=== PATIENT | female | born 1975 | race Caucasian/White ===

== ENCOUNTER 2018-06-16 19:52 | Emergency (ER) | payer MEDICAID ==
[~2018-06-16 19:52] MED LIST: DIPH-423 PO; NO HOME MEDS; ONDA4TAB6 PO; PANT20TA2 PO; PRED20TA PO
== END 2018-06-16 21:07 | disposition left against medical advice (07) ==
LOC: ER 19:53
DX: R10.9 Unspecified abdominal pain (principal); Z53.21 Procedure and treatment not carried out due to patient leaving prior to being seen by health care provider

== ENCOUNTER 2019-11-20 16:03 | Emergency (ER) | payer MEDICAID, OTHER ==
[~2019-11-20] VITALS: Ht 172.7 cm; Wt 70.5 kg
[2019-11-20 16:12] VITALS: BP 136/78
[2019-11-20] MEDS ORDERED: HYDROcodone/acetaminophen 5mg/325mg tablet PO ONE (17:05)
[2019-11-20] MEDS ORDERED: ondansetron 4mg rapidly disintigrating tab PO ONE (17:05)
[2019-11-20] MEDS ORDERED: HYDR-4383 PO (17:34)
[2019-11-20] MEDS ORDERED: ONDA4TAB6 PO (17:34)
== END 2019-11-20 17:53 | disposition home or self-care (01) ==
LOC: ER 16:03
DX: S20.219A Contusion of unspecified front wall of thorax, initial encounter (principal); F15.90 Other stimulant use, unspecified, uncomplicated; Z56.0 Unemployment, unspecified; Z90.49 Acquired absence of other specified parts of digestive tract; Z98.890 Other specified postprocedural states; Z79.899 Other long term (current) drug therapy; Y04.0XXA Assault by unarmed brawl or fight, initial encounter; Y93.89 Activity, other specified; Y92.89 Other specified places as the place of occurrence of the external cause; Y99.9 Unspecified external cause status
CPT/HCPCS: 71045; 99283

== ENCOUNTER 2023-04-12 13:32 | Inpatient (IN) | payer MEDICAID ==
[~2023-04-12] VITALS: Ht 172.7 cm; Wt 71.1 kg
[~2023-04-12 13:32] MED LIST changes: +HYDR-4383 PO
[2023-04-12 14:22] LABS: CLARITY,URINE SLIGHTLY CLOUDY (Clear); COLOR,URINE YELLOW (Yellow); GLUCOSE, URINE NEGATIVE (Neg); KETONES,URINE >=80 mg/dl (Neg); LEUKOCYTE ESTERASE ,URINE NEGATIVE (Neg); NITRITES, URINE NEGATIVE (Neg); OCCULT BLOOD,URINE TRACE-INTACT (Neg); PROTEIN,URINE NEGATIVE (Neg)
[2023-04-12 14:22] LABS: BASOPHILS % (AUTO) 0.4 % (0-1); EOSINOPHILS # (AUTO) 0.1 X10'3 (0-0.9); EOSINOPHILS % (AUTO) 1.1 % (0-6); HEMATOCRIT 43.9 % (35.0-45.0); HEMOGLOBIN 15.3 g/dl (12.0-16.0); LYMPHOCYTES # (AUTO) 1.6 X10'3 (1.1-4.8); LYMPHOCYTES % (AUTO) 18.8 % (21-51); MEAN CORPUSCULAR VOLUME 88.6 FL (78-98); MEAN PLATELET VOLUME 7.6 FL (7.4-10.4); MONOCYTES # (AUTO) 0.6 X10'3 (0-0.9); MONOCYTES % (AUTO) 7.7 % (2-12); PLATELET COUNT 315 X10'3 (140-440); RED BLOOD COUNT 4.96 X10'6 (4.20-5.60); RED CELL DISTRIBUTION WIDTH 12.9 % (11.5-14.5); WHITE BLOOD COUNT 8.3 X10'3 (4.5-11.0)
[2023-04-12 14:24] LABS: URINE HCG NEGATIVE (NEG)
[2023-04-12 14:26] LABS: UA COLLECTION TYPE CLN CATCH MIDSTREAM
[2023-04-12 14:33] LABS: ALANINE AMINOTRANSFERASE 318 U/L (12-78); ALBUMIN 4.1 G/DL (3.4-5.0); ALBUMIN/GLOBULIN RATIO 1.1 (1.1-1.5); ALKALINE PHOSPHATASE 175 IU/L (46-116); ANION GAP 6 (8-16); ASPARTATE AMINO TRANSFERASE 235 U/L (10-37); BILIRUBIN,TOTAL 0.9 MG/DL (0.1-1.0); BLOOD UREA NITROGEN 10 MG/DL (7-18); BUN/CREATININE RATIO 14.3 (10.0-20.0); CALCIUM 9.4 MG/DL (8.5-10.1); CHLORIDE 97 MMOL/L (99-107); GLUCOSE 99 MG/DL (70-104); LIPASE 221 U/L (73-393); POTASSIUM 3.7 MMOL/L (3.5-5.1); SODIUM 132 MMOL/L (135-145); TOTAL CARBON DIOXIDE 29.5 MMOL/L (24-32); eGFR 89 ML/MIN
[2023-04-12 14:34] LABS: BACTERIA,URINE 1+ /HPF (Neg); SQUAMOUS EPITHELIAL CELL,UR MANY /LPF (FEW); WBC,URINE 0-4 /HPF (0-4)
[2023-04-12 14:35] LABS: COARSE GRANULAR CAST 0-3 /LPF (NEGATIVE); HYALINE CASTS 0-3 /LPF (NEGATIVE); MUCUS STRANDS MODERATE /LPF (Neg)
[2023-04-12 14:42] LABS: TRICHOMONAS,URINE FEW /HPF (NEGATIVE)
[2023-04-12] MEDS ORDERED: CefTRIAXone 250MG IM Kit w/LIDOcaine IM STA ×2 (16:43→18:41)
[2023-04-12] MEDS ORDERED: PENICILLIN G BENZATHINE 2,400,000 UNIT/4 ML SYRINGE IM STA ×2 (16:50→18:43)
[2023-04-12] MEDS ORDERED: METR-159 PO ×2 (16:54)
[2023-04-12] MEDS ORDERED: HYDROcodone/acetaminophen 5mg/325mg tablet PO ONE ×2 (17:00→18:45)
[2023-04-12] MEDS ORDERED: ketorolac trometh. 30mg/ml inj. IM ONE ×2 (17:00→18:45)
[2023-04-12] MEDS ORDERED: metroNIDAZOLE-Flagyl 500mg/NS 100 ML IV STA (18:14)
[2023-04-12] MEDS ORDERED: meperidine/PF 50mg/ml syringe IV ONE (18:15)
[2023-04-12] MEDS ORDERED: magnesium 4gm in 100ml NS 100 ML IV PRN (19:55)
[2023-04-12] MEDS ORDERED: magnesium 2GM in 50ml NS 50 ML IV PRN (19:55)
[2023-04-12] MEDS ORDERED: potassium Cl 40MEQ/1/2NS 520ml 520 ML IV PRN (19:55)
[2023-04-12] MEDS ORDERED: potassium Cl 20 mEq SR tablet PO PRN ×2 (19:55)
[2023-04-12] MEDS ORDERED: mag hydrox/Alum hydrox/simeth 30ml oral suspension PO PRN (19:55)
[2023-04-12] MEDS ORDERED: magnesium Cl slow-release 64mg tablet PO PRN (19:55)
[2023-04-12] MEDS ORDERED: magnesium hydroxide 30ml (MOM) UD suspension PO PRN (19:55)
[2023-04-12] MEDS ORDERED: ondansetron/PF 4mg/2ml inj IV PRN (19:55)
[2023-04-12] MEDS: docusate sod 100mg capsule PO SCH (20:00)
[2023-04-12] MEDS: K and/or MAG REPLACEMENT MC SCH (20:00)
[2023-04-12 21:33] VITALS: BP 128/74
[2023-04-12] MEDS: normal saline 1000ml 1,000 ML IV SCH ×2 (21:49→21:58)
[2023-04-12] MEDS ORDERED: HYDROmorphone inj. 0.5 MG/0.5 ML DISP.SYRIN IV ONE (22:25)
[2023-04-13] VITALS (12 sets, daily range): BP systolic 109–146; BP diastolic 62–82
[2023-04-13] MEDS: HYDROcodone/acetaminophen 10/325mg tab PO PRN ×2 (01:03→10:18)
[2023-04-13] MEDS: metroNIDAZOLE-Flagyl 500mg/NS 100 ML IV SCH ×3 (04:09→21:19)
[2023-04-13 07:38] LABS: BASOPHILS % (AUTO) 0.5 % (0-1); EOSINOPHILS # (AUTO) 0.1 X10'3 (0-0.9); EOSINOPHILS % (AUTO) 2.3 % (0-6); HEMATOCRIT 36.8 % (35.0-45.0); HEMOGLOBIN 12.6 g/dl (12.0-16.0); LYMPHOCYTES # (AUTO) 1.6 X10'3 (1.1-4.8); LYMPHOCYTES % (AUTO) 26.2 % (21-51); MEAN CORPUSCULAR HEMOGLOBIN 30.8 PG (27.0-31.0); MEAN CORPUSCULAR HGB CONC 34.3 g/dL (33.0-36.5); MEAN CORPUSCULAR VOLUME 89.7 FL (78-98); MEAN PLATELET VOLUME 8.3 FL (7.4-10.4); MONOCYTES # (AUTO) 0.6 X10'3 (0-0.9); MONOCYTES % (AUTO) 10.3 % (2-12); NEUTROPHILS # (AUTO) 3.6 X10'3 (1.8-7.7); NEUTROPHILS % (AUTO) 60.7 % (42-75); PLATELET COUNT 256 X10'3 (140-440)
[2023-04-13] MEDS: docusate sod 100mg capsule PO SCH ×2 (07:50→21:13)
[2023-04-13] MEDS: CefTRIAXone/D5W-Rocephin 1gm 50 ML IV SCH (07:56)
[2023-04-13] MEDS: K and/or MAG REPLACEMENT MC SCH ×2 (08:00→21:09)
[2023-04-13 08:05] LABS: ALANINE AMINOTRANSFERASE 171 U/L (12-78); ALKALINE PHOSPHATASE 125 IU/L (46-116); ANION GAP 5 (8-16); ASPARTATE AMINO TRANSFERASE 73 U/L (10-37); BILIRUBIN,TOTAL 0.6 MG/DL (0.1-1.0); BLOOD UREA NITROGEN 23 MG/DL (7-18); CALCIUM 8.5 MG/DL (8.5-10.1); CHLORIDE 100 MMOL/L (99-107); CREATININE 0.59 MG/DL (0.40-0.90); GLUCOSE 83 MG/DL (70-104); MAGNESIUM 1.9 MG/DL (1.5-2.4); POTASSIUM 3.6 MMOL/L (3.5-5.1); SODIUM 134 MMOL/L (135-145); TOTAL CARBON DIOXIDE 28.8 MMOL/L (24-32); eGFR > 90 ML/MIN
[2023-04-13] MEDS: morphine 2 MG/ML inj. syringe IV PRN ×2 (08:08→11:21)
[2023-04-13] MEDS: nicotine 21mg patch - 24 hr TD SCH (10:18)
[2023-04-13] MEDS ORDERED: diphenhydrAMINE 50 mg/ml inj ONE (12:40)
[2023-04-13] MEDS ORDERED: glucagon, human recombinant 1mg kit ONE (12:40)
[2023-04-13] MEDS ORDERED: fentaNYL/PF 50MCG/1 ML 2ML syringe ONE ×2 (12:40→13:55)
[2023-04-13] MEDS ORDERED: MIDAZolam 1 MG/ML 5ML VIAL ONE (12:40)
[2023-04-13] MEDS ORDERED: iohexol 300mg/ml 100ml inj. ONE (12:41)
[2023-04-13] MEDS ORDERED: LIDOcaine Viscous 15ml cup ONE (13:16)
[2023-04-13] MEDS ORDERED: proCHLORperazine 10 MG/2 ml inj ONE (13:16)
[2023-04-13] MEDS ORDERED: pantoprazole 80 MG in NS 100ml IV soln IV ONE (14:40)
[2023-04-13] MEDS: normal saline 1000ml 1,000 ML IV SCH (15:55)
--- NOTE | 2023-04-13 18:30 | NUR ---
Patient in room [facility]TH[facility] 4021. I have received report from MATTEO Warren and had the opportunity to ask questions and assume patient care. Addendum: 04/13/23 at 1849 by Klaudia Johnston RN Amended: Links added.
--- NOTE | 2023-04-13 18:34 | NUR ---
Problems reprioritized. Patient report given, questions answered & plan of care reviewed with Klaudia FELIPE.
[2023-04-13] MEDS: pantoprazole 40MG/NS 100ML BAG 100 ML IV SCH (21:06)
[2023-04-13] MEDS: heparin, porcine 5000 units/ml vial SQ SCH (21:13)
[2023-04-14] MEDS: HYDROcodone/acetaminophen 10/325mg tab PO PRN ×2 (00:38→10:49)
[2023-04-14] MEDS: normal saline 1000ml 1,000 ML IV SCH (01:06)
[2023-04-14] MEDS: pantoprazole 40MG/NS 100ML BAG 100 ML IV SCH ×2 (02:31→09:05)
[2023-04-14] MEDS: metroNIDAZOLE-Flagyl 500mg/NS 100 ML IV SCH ×2 (03:53→12:46)
[2023-04-14] MEDS: morphine 2 MG/ML inj. syringe IV PRN ×2 (03:56→13:47)
[2023-04-14 05:42] LABS: BASOPHILS % (AUTO) 0.6 % (0-1); EOSINOPHILS # (AUTO) 0.1 X10'3 (0-0.9); EOSINOPHILS % (AUTO) 3.1 % (0-6); HEMATOCRIT 32.4 % (35.0-45.0); HEMOGLOBIN 11.2 g/dl (12.0-16.0); LYMPHOCYTES # (AUTO) 1.5 X10'3 (1.1-4.8); MEAN CORPUSCULAR HEMOGLOBIN 31.1 PG (27.0-31.0); MEAN CORPUSCULAR HGB CONC 34.7 g/dL (33.0-36.5); MEAN CORPUSCULAR VOLUME 89.6 FL (78-98); MEAN PLATELET VOLUME 8.6 FL (7.4-10.4); MONOCYTES # (AUTO) 0.5 X10'3 (0-0.9); MONOCYTES % (AUTO) 11.4 % (2-12); NEUTROPHILS % (AUTO) 47.9 % (42-75); PLATELET COUNT 217 X10'3 (140-440); RED BLOOD COUNT 3.62 X10'6 (4.20-5.60); RED CELL DISTRIBUTION WIDTH 13.2 % (11.5-14.5); WHITE BLOOD COUNT 4.1 X10'3 (4.5-11.0)
[2023-04-14 05:57] LABS: ALANINE AMINOTRANSFERASE 102 U/L (12-78); ALBUMIN 2.6 G/DL (3.4-5.0); ALKALINE PHOSPHATASE 94 IU/L (46-116); ANION GAP 4 (8-16); ASPARTATE AMINO TRANSFERASE 32 U/L (10-37); BILIRUBIN,TOTAL 0.3 MG/DL (0.1-1.0); BLOOD UREA NITROGEN 12 MG/DL (7-18); BUN/CREATININE RATIO 21.1 (10.0-20.0); CALCIUM 7.9 MG/DL (8.5-10.1); CHLORIDE 107 MMOL/L (99-107); CREATININE 0.57 MG/DL (0.40-0.90); GLUCOSE 94 MG/DL (70-104); MAGNESIUM 2.2 MG/DL (1.5-2.4); POTASSIUM 3.5 MMOL/L (3.5-5.1); SODIUM 139 MMOL/L (135-145); TOTAL CARBON DIOXIDE 28.5 MMOL/L (24-32); TOTAL PROTEIN 5.3 G/DL (6.4-8.2); eGFR > 90 ML/MIN
[2023-04-14 06:00] VITALS: BP 97/57
[2023-04-14 06:32] LABS: H PYLORI ANTIBODY NEGATIVE (Neg)
--- NOTE | 2023-04-14 06:43 | NUR ---
Patient in room [facility]TH[facility] 4021. I have received report from Klaudia and had the opportunity to ask questions and assume patient care.
[2023-04-14] MEDS: K and/or MAG REPLACEMENT MC SCH (07:13)
[2023-04-14] MEDS ORDERED: pantoprazole 40MG/NS 100ML BAG 100 ML IV SCH (08:00)
[2023-04-14] MEDS: docusate sod 100mg capsule PO SCH (09:05)
[2023-04-14] MEDS: CefTRIAXone/D5W-Rocephin 1gm 50 ML IV SCH (09:05)
[2023-04-14] MEDS: nicotine 21mg patch - 24 hr TD SCH (09:06)
[2023-04-14] MEDS: heparin, porcine 5000 units/ml vial SQ SCH (09:07)
[2023-04-14 10:00] VITALS: BP 119/75
[2023-04-14] MEDS ORDERED: METR-159 PO (12:54)
[2023-04-14] MEDS ORDERED: PANT-47 PO (12:54)
[2023-04-14] MEDS ORDERED: NICO-687 TD (12:54)
[2023-04-14] MEDS ORDERED: HYDR-3972 PO (12:56)
== END 2023-04-14 14:25 | disposition home or self-care (01) ==
LOC: ER 13:32 → ED HOLD 19:56 → ORTHO 4S 21:20
PROVIDERS: ADMIT Internal Medicine; ATTEND Family Medicine
PROC: 0D798ZZ Dilation of Duodenum, Via Natural or Artificial Opening Endoscopic (ICD-10-PCS; principal; 2023-04-13)
PROC: 0FJB8ZZ Inspection of Hepatobiliary Duct, Via Natural or Artificial Opening Endoscopic (ICD-10-PCS; 2023-04-13)
DX: K80.50 Calculus of bile duct without cholangitis or cholecystitis without obstruction (principal); K26.9 Duodenal ulcer, unspecified as acute or chronic, without hemorrhage or perforation; A59.9 Trichomoniasis, unspecified; F17.210 Nicotine dependence, cigarettes, uncomplicated; F15.90 Other stimulant use, unspecified, uncomplicated; F32.A Depression, unspecified; K29.70 Gastritis, unspecified, without bleeding; R74.01 Elevation of levels of liver transaminase levels; F41.9 Anxiety disorder, unspecified; Z90.49 Acquired absence of other specified parts of digestive tract; Z56.0 Unemployment, unspecified; Z79.899 Other long term (current) drug therapy; Z71.6 Tobacco abuse counseling
CPT/HCPCS: 36415; 43239; 43245; 43260; 74176; 76700; 80053; 81001; 81025; 83690; 83735; 85025; 86677; 86705; 86803; 87081; 87340; 87491; 87522; 99152; 99153; 99285; A4620; A6258; C1726; C9113; G0378; J0561; J0696; J0780; J1170; J1200; J1610; J1644; J1885; J2175; J2250; J2270; J2405; J3010; J3490; J7030; Q9967

== ENCOUNTER 2023-11-16 22:43 | Emergency (ER) | payer MEDICAID ==
[~2023-11-16] VITALS: Ht 172.7 cm; Wt 72.7 kg
[~2023-11-16 22:43] MED LIST changes: -DIPH-423 PO; +HYDR-3972 PO; -HYDR-4383 PO; +METR-159 PO; +NICO-687 TD; -NO HOME MEDS; -ONDA4TAB6 PO; +PANT-47 PO; -PANT20TA2 PO; -PRED20TA PO
[2023-11-16 22:50] VITALS: BP 122/70; PULSE 101; RESP 16; TEMP 97.8; O2SAT 97
== END 2023-11-17 01:29 | disposition left against medical advice (07) ==
LOC: ER 22:43
DX: R51.9 Headache, unspecified (principal); M79.18 Myalgia, other site; Z53.21 Procedure and treatment not carried out due to patient leaving prior to being seen by health care provider
CPT/HCPCS: 99281

== ENCOUNTER 2024-05-10 20:31 | Emergency (ER) | payer MEDICAID ==
[~2024-05-10] VITALS: Ht 172.7 cm; Wt 72.7 kg
[2024-05-10] MEDS: normal saline 1000ml 1,000 ML IV ONE (21:13)
[2024-05-10] MEDS: ondansetron/PF 4mg/2ml inj IV ONE (21:13)
[2024-05-10] MEDS: HYDROmorphone 1 mg/ml syringe IV ONE (21:13)
[2024-05-10 21:31] LABS: BASOPHILS % (AUTO) 0.6 % (0-1); EOSINOPHILS # (AUTO) 0.1 X10'3 (0-0.9); EOSINOPHILS % (AUTO) 1.9 % (0-6); HEMOGLOBIN 14.3 g/dl (12.0-16.0); LYMPHOCYTES # (AUTO) 1.8 X10'3 (1.1-4.8); LYMPHOCYTES % (AUTO) 28.8 % (21-51); MEAN CORPUSCULAR HEMOGLOBIN 30.9 PG (27.0-31.0); MEAN CORPUSCULAR HGB CONC 34.2 g/dL (33.0-36.5); MEAN CORPUSCULAR VOLUME 90.6 FL (78-98); MEAN PLATELET VOLUME 8.4 FL (7.4-10.4); MONOCYTES # (AUTO) 0.4 X10'3 (0-0.9); MONOCYTES % (AUTO) 6.3 % (2-12); NEUTROPHILS # (AUTO) 3.9 X10'3 (1.8-7.7); NEUTROPHILS % (AUTO) 62.4 % (42-75); PLATELET COUNT 279 X10'3 (140-440); RED BLOOD COUNT 4.64 X10'6 (4.20-5.60); RED CELL DISTRIBUTION WIDTH 12.7 % (11.5-14.5); WHITE BLOOD COUNT 6.2 X10'3 (4.5-11.0)
[2024-05-10 21:35] LABS: ALANINE AMINOTRANSFERASE 63 U/L (12-78); ALBUMIN 3.8 G/DL (3.4-5.0); ALBUMIN/GLOBULIN RATIO 0.9 (1.1-1.5); ALKALINE PHOSPHATASE 82 IU/L (46-116); ANION GAP 6 (8-16); ASPARTATE AMINO TRANSFERASE 32 U/L (10-37); BILIRUBIN,TOTAL 0.6 MG/DL (0.1-1.0); BLOOD UREA NITROGEN 14 MG/DL (7-18); BUN/CREATININE RATIO 19.2 (10.0-20.0); CALCIUM 8.8 MG/DL (8.5-10.1); CHLORIDE 101 MMOL/L (99-107); CREATININE 0.73 MG/DL (0.40-0.90); GLUCOSE 116 MG/DL (70-104); LIPASE 44 U/L (16-77); POTASSIUM 3.7 MMOL/L (3.5-5.1); SODIUM 135 MMOL/L (135-145); TOTAL CARBON DIOXIDE 28.5 MMOL/L (24-32); TOTAL PROTEIN 8.2 G/DL (6.4-8.2); eCRCL 92 ML/MIN; eGFR 84 ML/MIN
[2024-05-11 00:08] LABS: BILIRUBIN,URINE SMALL (Neg); COLOR,URINE YELLOW (Yellow); GLUCOSE, URINE NEGATIVE (Neg); KETONES,URINE 15 mg/dl (Neg); LEUKOCYTE ESTERASE ,URINE NEGATIVE (Neg); NITRITES, URINE NEGATIVE (Neg); OCCULT BLOOD,URINE NEGATIVE (Neg); PH,URINE 5.5 (4.8-8.0); PROTEIN,URINE NEGATIVE (Neg)
[2024-05-11 00:10] LABS: URINE HCG NEGATIVE (NEG)
[2024-05-11 00:14] LABS: UA COLLECTION TYPE CLN CATCH MIDSTREAM
[2024-05-11 00:16] LABS: MUCUS STRANDS MANY /LPF (Neg); SQUAMOUS EPITHELIAL CELL,UR MODERATE /LPF (FEW)
[2024-05-11 00:17] LABS: BACTERIA,URINE 1+ /HPF (Neg); CLARITY,URINE SLIGHTLY CLOUDY (Clear); WBC,URINE 0-4 /HPF (0-4)
[2024-05-11] MEDS: ketorolac tromethamine 15mg/ml inj. IV ONE (00:31)
[2024-05-11] MEDS ORDERED: PANT-47 PO (01:53)
[2024-05-11 02:10] VITALS: BP 112/62; PULSE 82; RESP 16; TEMP 99; O2SAT 96
== END 2024-05-11 02:14 | disposition home or self-care (01) ==
LOC: ER 20:31
DX: R10.84 Generalized abdominal pain (principal); R11.10 Vomiting, unspecified; F15.90 Other stimulant use, unspecified, uncomplicated; Z79.899 Other long term (current) drug therapy; Z90.49 Acquired absence of other specified parts of digestive tract; Z98.890 Other specified postprocedural states
CPT/HCPCS: 36415; 74176; 76700; 80053; 81001; 81025; 83690; 85025; 96361; 96374; 96375; 99285; J1170; J1885; J2405; J7030

== ENCOUNTER 2025-03-09 07:22 | Inpatient (IN) | payer MEDICAID ==
[2025-03-09] VITALS (7 sets, daily range): BP systolic 111–139; BP diastolic 63–71; PULSE 105–108; RESP 14–18; TEMP 99.8–103.2; O2SAT 94–98
[~2025-03-09] VITALS: Ht 172.7 cm; Wt 88.5 kg
[2025-03-09 09:19] LABS: BASOPHILS % (AUTO) 0.3 % (0-1); EOSINOPHILS % (AUTO) 0.2 % (0-6); HEMATOCRIT 41.7 % (35.0-45.0); HEMOGLOBIN 14.1 g/dl (12.0-16.0); LYMPHOCYTES % (AUTO) 9.5 % (21-51); MEAN CORPUSCULAR HEMOGLOBIN 30.2 PG (27.0-31.0); MEAN CORPUSCULAR HGB CONC 33.9 g/dL (33.0-36.5); MEAN CORPUSCULAR VOLUME 89.2 FL (78-98); MEAN PLATELET VOLUME 7.7 FL (7.4-10.4); MONOCYTES # (AUTO) 0.7 X10'3 (0-0.9); MONOCYTES % (AUTO) 6.3 % (2-12); NEUTROPHILS # (AUTO) 8.8 X10'3 (1.8-7.7); NEUTROPHILS % (AUTO) 83.7 % (42-75); PLATELET COUNT 248 X10'3 (140-440); RED BLOOD COUNT 4.68 X10'6 (4.20-5.60); WHITE BLOOD COUNT 10.5 X10'3 (4.5-11.0)
[2025-03-09] MEDS: morphine 4 MG/ML inj SYRINge IV ONE (09:27)
[2025-03-09 09:30] LABS: ALANINE AMINOTRANSFERASE 51 U/L (12-78); ALBUMIN 3.5 G/DL (3.4-5.0); ALBUMIN/GLOBULIN RATIO 0.9 (1.1-1.5); ALKALINE PHOSPHATASE 104 IU/L (46-116); ANION GAP 7 (8-16); ASPARTATE AMINO TRANSFERASE 28 U/L (10-37); BILIRUBIN,TOTAL 0.5 MG/DL (0.1-1.0); BLOOD UREA NITROGEN 12 MG/DL (7-18); BUN/CREATININE RATIO 14.8 (10.0-20.0); CALCIUM 8.6 MG/DL (8.5-10.1); CHLORIDE 100 MMOL/L (99-107); CREATININE 0.81 MG/DL (0.40-0.90); GLUCOSE 100 MG/DL (70-104); POTASSIUM 3.9 MMOL/L (3.5-5.1); SODIUM 134 MMOL/L (135-145); TOTAL CARBON DIOXIDE 27.1 MMOL/L (24-32); TOTAL PROTEIN 7.5 G/DL (6.4-8.2); eCRCL 83 ML/MIN; eGFR 75 ML/MIN
[2025-03-09] MEDS: acetaminophen 1,000mg/100ml IV 100 ML IV STA (11:19)
[2025-03-09] MEDS: vancomycin/NS 1 GM ADD-VANTAGE 250 ML X 1 DOSE IV ONE (11:19)
[2025-03-09] MEDS: normal saline 1000ml 1,000 ML IV ONE ×2 (12:35→12:36)
[2025-03-09] MEDS ORDERED: magnesium sulf-water 2g/50mL 50 ML IV PRN (12:45)
[2025-03-09] MEDS ORDERED: morphine 2 MG/ML inj. syringe IV PRN (12:45)
[2025-03-09] MEDS ORDERED: ondansetron/PF 4mg/2ml inj IV PRN (12:45)
[2025-03-09] MEDS ORDERED: magnesium hydroxide 30ml (MOM) UD suspension PO PRN (12:45)
[2025-03-09] MEDS ORDERED: magnesium Cl slow-release 64mg tablet PO PRN (12:45)
[2025-03-09] MEDS ORDERED: potassium Cl 40MEQ/1/2NS 520ml 520 ML IV PRN (12:45)
[2025-03-09] MEDS ORDERED: potassium Cl 20 mEq SR tablet PO PRN ×2 (12:45)
[2025-03-09] MEDS ORDERED: magnesium sulf-water 4G/100mL 100 ML IV PRN (12:45)
[2025-03-09] MEDS ORDERED: mag hydrox/Alum hydrox/simeth 30ml oral suspension PO PRN (12:45)
[2025-03-09] MEDS ORDERED: NO HOME MEDS (13:21)
[2025-03-09 13:54] LABS: BILIRUBIN,URINE SMALL (Neg); CLARITY,URINE CLEAR (Clear); COLOR,URINE YELLOW (Yellow); GLUCOSE, URINE NEGATIVE (Neg); KETONES,URINE 40 mg/dl (Neg); LEUKOCYTE ESTERASE ,URINE NEGATIVE (Neg); OCCULT BLOOD,URINE TRACE-INTACT (Neg); PROTEIN,URINE NEGATIVE (Neg); UROBILINOGEN,URINE 0.2 E.U/dL (0.2-1.0)
[2025-03-09 14:03] LABS: NITRITES, URINE NEGATIVE (Neg); UA COLLECTION TYPE CLN CATCH MIDSTREAM
[2025-03-09 14:09] LABS: BACTERIA,URINE FEW /HPF (Neg); SQUAMOUS EPITHELIAL CELL,UR FEW /LPF (FEW); TRANSITIONAL EPI CELLS,URINE FEW /HPF; WBC,URINE 0-4 /HPF (0-4)
[2025-03-09] MEDS: normal saline 1000ml 1,000 ML IV SCH (14:09)
[2025-03-09 14:25] LABS: HEMOGLOBIN A1C 5.3 % (4.5-6.2)
[2025-03-09] MEDS: morphine 2 MG/ML inj. syringe IV PRN (15:40)
[2025-03-09] MEDS: acetaminophen 325mg tablet PO PRN (15:47)
[2025-03-09] MEDS: piperacillin/tazo 3.375gm/50ml 50 ML IV SCH (16:17)
[2025-03-09] MEDS: K and/or MAG REPLACEMENT MC SCH (20:00)
[2025-03-09] MEDS: docusate sod 100mg capsule PO SCH (20:52)
[2025-03-09] MEDS: heparin, porcine 5000 units/ml vial SQ SCH (20:53)
[2025-03-09] MEDS: VANCOmycin 1250MG/NS 250ml Bag 250 ML IV SCH (23:17)
[2025-03-10] VITALS (10 sets, daily range): BP systolic 95–128; BP diastolic 57–66; PULSE 89–97; RESP 12–18; TEMP 97.6–101.4; O2SAT 96–98
[2025-03-10 06:51] LABS: ALANINE AMINOTRANSFERASE 40 U/L (12-78); ALBUMIN 2.7 G/DL (3.4-5.0); ALBUMIN/GLOBULIN RATIO 0.8 (1.1-1.5); ALKALINE PHOSPHATASE 94 IU/L (46-116); ANION GAP 10 (8-16); ASPARTATE AMINO TRANSFERASE 22 U/L (10-37); BILIRUBIN,TOTAL 0.5 MG/DL (0.1-1.0); BLOOD UREA NITROGEN 8 MG/DL (7-18); CALCIUM 8.1 MG/DL (8.5-10.1); CHLORIDE 102 MMOL/L (99-107); CHOL/HDL RATIO 2.9 (0.00-4.99); CHOLESTEROL 155 MG/DL (0-200); CREATININE 0.73 MG/DL (0.40-0.90); GLUCOSE 96 MG/DL (70-104); HDL CHOLESTEROL 53 MG/DL (35-60); LDL CHOLESTEROL 81 MG/DL (50-100); MAGNESIUM 1.9 MG/DL (1.5-2.4); POTASSIUM 3.6 MMOL/L (3.5-5.1); SODIUM 136 MMOL/L (135-145); TOTAL CARBON DIOXIDE 24.2 MMOL/L (24-32); TOTAL PROTEIN 6.3 G/DL (6.4-8.2); TRIGLYCERIDES 84 MG/DL (20-135); eCRCL 92 ML/MIN; eGFR 84 ML/MIN
[2025-03-10 06:53] LABS: BASOPHILS % (AUTO) 0.7 % (0-1); EOSINOPHILS % (AUTO) 0 % (0-6); HEMATOCRIT 36.3 % (35.0-45.0); HEMOGLOBIN 12.5 g/dl (12.0-16.0); LYMPHOCYTES # (AUTO) 1.4 X10'3 (1.1-4.8); LYMPHOCYTES % (AUTO) 20.1 % (21-51); MEAN CORPUSCULAR HEMOGLOBIN 30.4 PG (27.0-31.0); MEAN CORPUSCULAR HGB CONC 34.3 g/dL (33.0-36.5); MEAN CORPUSCULAR VOLUME 88.7 FL (78-98); MEAN PLATELET VOLUME 8.2 FL (7.4-10.4); MONOCYTES # (AUTO) 0.7 X10'3 (0-0.9); MONOCYTES % (AUTO) 9.8 % (2-12); NEUTROPHILS # (AUTO) 4.7 X10'3 (1.8-7.7); NEUTROPHILS % (AUTO) 69.4 % (42-75); PLATELET COUNT 189 X10'3 (140-440); RED CELL DISTRIBUTION WIDTH 12.8 % (11.5-14.5); WHITE BLOOD COUNT 6.8 X10'3 (4.5-11.0)
[2025-03-10] MEDS: acetaminophen 325mg tablet PO PRN (18:01)
[2025-03-10] MEDS: VANCOMYCIN LEVEL IV ONE (22:30)
[2025-03-11 06:00] VITALS: BP 102/59; PULSE 85; RESP 14; TEMP 97.4; O2SAT 98
[2025-03-11 07:09] LABS: BASOPHILS % (AUTO) 0.3 % (0-1); EOSINOPHILS # (AUTO) 0.1 X10'3 (0-0.9); EOSINOPHILS % (AUTO) 1.6 % (0-6); HEMATOCRIT 36.4 % (35.0-45.0); HEMOGLOBIN 12.6 g/dl (12.0-16.0); LYMPHOCYTES # (AUTO) 1.7 X10'3 (1.1-4.8); LYMPHOCYTES % (AUTO) 31.1 % (21-51); MEAN CORPUSCULAR HEMOGLOBIN 30.7 PG (27.0-31.0); MEAN CORPUSCULAR HGB CONC 34.6 g/dL (33.0-36.5); MEAN CORPUSCULAR VOLUME 88.7 FL (78-98); MEAN PLATELET VOLUME 7.8 FL (7.4-10.4); MONOCYTES # (AUTO) 0.9 X10'3 (0-0.9); MONOCYTES % (AUTO) 15.4 % (2-12); NEUTROPHILS # (AUTO) 2.9 X10'3 (1.8-7.7); NEUTROPHILS % (AUTO) 51.6 % (42-75); PLATELET COUNT 216 X10'3 (140-440); RED CELL DISTRIBUTION WIDTH 12.5 % (11.5-14.5); WHITE BLOOD COUNT 5.6 X10'3 (4.5-11.0)
[2025-03-11 07:35] LABS: ALANINE AMINOTRANSFERASE 39 U/L (12-78); ALBUMIN 2.8 G/DL (3.4-5.0); ALBUMIN/GLOBULIN RATIO 0.7 (1.1-1.5); ALKALINE PHOSPHATASE 92 IU/L (46-116); ANION GAP 6 (8-16); ASPARTATE AMINO TRANSFERASE 20 U/L (10-37); BILIRUBIN,TOTAL 0.2 MG/DL (0.1-1.0); BLOOD UREA NITROGEN 7 MG/DL (7-18); BUN/CREATININE RATIO 10.8 (10.0-20.0); CALCIUM 8.4 MG/DL (8.5-10.1); CHLORIDE 108 MMOL/L (99-107); CREATININE 0.65 MG/DL (0.40-0.90); GLUCOSE 113 MG/DL (70-104); POTASSIUM 3.8 MMOL/L (3.5-5.1); SODIUM 141 MMOL/L (135-145); TOTAL CARBON DIOXIDE 27.3 MMOL/L (24-32); TOTAL PROTEIN 6.8 G/DL (6.4-8.2); eCRCL 103 ML/MIN; eGFR > 90 ML/MIN
[2025-03-11 08:00] VITALS: RESP 14; O2SAT 98
[2025-03-11] MEDS ORDERED: LINE600T11 PO (08:24)
[2025-03-11] MEDS ORDERED: LACT1CAP26 PO (08:24)
[2025-03-11] MEDS ORDERED: ACET-1008 PO (08:28)
[2025-03-11] MEDS ORDERED: VANCOmycin 1250MG/NS 250ml Bag 250 ML IV SCH (09:00)
[2025-03-11 09:16] LABS: TOTAL CELLS COUNTED 100
[2025-03-11 09:17] LABS: PLATELET ESTIMATE NORMAL
[2025-03-11 09:30] VITALS: BP 105/61; PULSE 75; RESP 16; TEMP 98.1; O2SAT 97
[2025-03-11] MEDS ORDERED: NYSPWD TP (13:13)
[2025-03-12] MEDS ORDERED: VANCOMYCIN LEVEL IV ONE (08:30)
== END 2025-03-11 13:52 | disposition home or self-care (01) | DRG 720 ==
LOC: ER 07:23 → ED HOLD 12:29 → ORTHO 4S 15:31
PROVIDERS: ADMIT Family Medicine; ATTEND Family Medicine
DX: A41.9 Sepsis, unspecified organism (principal); E87.1 Hypo-osmolality and hyponatremia; L03.115 Cellulitis of right lower limb; F15.90 Other stimulant use, unspecified, uncomplicated; Z20.822 Contact with and (suspected) exposure to COVID-19; F32.A Depression, unspecified; F41.9 Anxiety disorder, unspecified; Z79.899 Other long term (current) drug therapy; Z90.49 Acquired absence of other specified parts of digestive tract; Z87.891 Personal history of nicotine dependence
CPT/HCPCS: 36415; 71045; 80053; 80061; 80202; 81001; 83036; 83605; 83735; 84145; 85007; 85025; 87040; 87081; 87502; 87503; 87811; 93306; 93971; 99285; A6258; G0378; J0131; J1644; J2270; J2543; J3370; J7030

== ENCOUNTER 2025-03-11 19:33 | Emergency (ER) | payer MEDICAID ==
[~2025-03-11] VITALS: Ht 172.7 cm; Wt 90.5 kg
[~2025-03-11 19:33] MED LIST changes: +ACET-1008 PO; -HYDR-3972 PO; +LACT1CAP26 PO; +LINE600T11 PO; -METR-159 PO; -NICO-687 TD; +NO HOME MEDS; +NYSPWD TP; -PANT-47 PO
[2025-03-11 19:55] VITALS: BP 121/66; PULSE 105; RESP 18; TEMP 98.5; O2SAT 97
[2025-03-11 20:16] LABS: BASOPHILS % (AUTO) 0.4 % (0-1); EOSINOPHILS # (AUTO) 0.2 X10'3 (0-0.9); EOSINOPHILS % (AUTO) 2.4 % (0-6); HEMATOCRIT 35.4 % (35.0-45.0); LYMPHOCYTES # (AUTO) 1.8 X10'3 (1.1-4.8); LYMPHOCYTES % (AUTO) 27.9 % (21-51); MEAN CORPUSCULAR HEMOGLOBIN 29.9 PG (27.0-31.0); MEAN CORPUSCULAR HGB CONC 33.9 g/dL (33.0-36.5); MEAN CORPUSCULAR VOLUME 88.4 FL (78-98); MEAN PLATELET VOLUME 7.4 FL (7.4-10.4); MONOCYTES # (AUTO) 0.8 X10'3 (0-0.9); MONOCYTES % (AUTO) 12.8 % (2-12); NEUTROPHILS # (AUTO) 3.7 X10'3 (1.8-7.7); NEUTROPHILS % (AUTO) 56.5 % (42-75); PLATELET COUNT 261 X10'3 (140-440); RED BLOOD COUNT 4.01 X10'6 (4.20-5.60); RED CELL DISTRIBUTION WIDTH 12.7 % (11.5-14.5); WHITE BLOOD COUNT 6.5 X10'3 (4.5-11.0)
[2025-03-11 20:40] LABS: ALANINE AMINOTRANSFERASE 37 U/L (12-78); ALBUMIN 3.1 G/DL (3.4-5.0); ALBUMIN/GLOBULIN RATIO 0.8 (1.1-1.5); ALKALINE PHOSPHATASE 91 IU/L (46-116); ANION GAP 5 (8-16); ASPARTATE AMINO TRANSFERASE 18 U/L (10-37); BILIRUBIN,TOTAL 0.2 MG/DL (0.1-1.0); BLOOD UREA NITROGEN 11 MG/DL (7-18); BUN/CREATININE RATIO 15.7 (10.0-20.0); CALCIUM 8.7 MG/DL (8.5-10.1); CHLORIDE 107 MMOL/L (99-107); GLUCOSE 96 MG/DL (70-104); POTASSIUM 3.8 MMOL/L (3.5-5.1); PRO BRAIN NATRIURETIC PEPTIDE 220 PG/ML (0-125); SODIUM 141 MMOL/L (135-145); TOTAL CARBON DIOXIDE 29.1 MMOL/L (24-32); TOTAL PROTEIN 7.1 G/DL (6.4-8.2); eCRCL 96 ML/MIN; eGFR 88 ML/MIN
== END 2025-03-12 01:02 | disposition left against medical advice (07) ==
LOC: ER 19:33
DX: R06.02 Shortness of breath (principal); R50.9 Fever, unspecified; Z53.21 Procedure and treatment not carried out due to patient leaving prior to being seen by health care provider
CPT/HCPCS: 36415; 80053; 83880; 84484; 85025; 93005

== ENCOUNTER 2025-03-13 19:41 | Inpatient (IN) | payer MEDICAID ==
[~2025-03-13] VITALS: Ht 172.7 cm; Wt 79.4 kg
[2025-03-13 20:29] LABS: BASOPHILS % (AUTO) 0.6 % (0-1); EOSINOPHILS # (AUTO) 0.4 X10'3 (0-0.9); EOSINOPHILS % (AUTO) 6.3 % (0-6); HEMATOCRIT 37.4 % (35.0-45.0); HEMOGLOBIN 12.8 g/dl (12.0-16.0); LYMPHOCYTES # (AUTO) 2.1 X10'3 (1.1-4.8); LYMPHOCYTES % (AUTO) 35.9 % (21-51); MEAN CORPUSCULAR HEMOGLOBIN 30.2 PG (27.0-31.0); MEAN CORPUSCULAR HGB CONC 34.3 g/dL (33.0-36.5); MEAN CORPUSCULAR VOLUME 88.2 FL (78-98); MEAN PLATELET VOLUME 6.9 FL (7.4-10.4); MONOCYTES # (AUTO) 0.5 X10'3 (0-0.9); MONOCYTES % (AUTO) 9.6 % (2-12); NEUTROPHILS # (AUTO) 2.7 X10'3 (1.8-7.7); NEUTROPHILS % (AUTO) 47.6 % (42-75); PLATELET COUNT 364 X10'3 (140-440); RED BLOOD COUNT 4.24 X10'6 (4.20-5.60); RED CELL DISTRIBUTION WIDTH 12.8 % (11.5-14.5); WHITE BLOOD COUNT 5.7 X10'3 (4.5-11.0)
[2025-03-13 20:44] LABS: ALBUMIN 3.3 G/DL (3.4-5.0); ANION GAP 7 (8-16); BILIRUBIN,TOTAL 0.3 MG/DL (0.1-1.0); BLOOD UREA NITROGEN 18 MG/DL (7-18); BUN/CREATININE RATIO 23.1 (10.0-20.0); CALCIUM 8.6 MG/DL (8.5-10.1); CHLORIDE 105 MMOL/L (99-107); CREATININE 0.78 MG/DL (0.40-0.90); GLUCOSE 95 MG/DL (70-104); POTASSIUM 3.5 MMOL/L (3.5-5.1); SODIUM 141 MMOL/L (135-145); TOTAL CARBON DIOXIDE 28.8 MMOL/L (24-32); TOTAL PROTEIN 7.5 G/DL (6.4-8.2); eCRCL 86 ML/MIN; eGFR 78 ML/MIN
[2025-03-13 20:45] LABS: ALANINE AMINOTRANSFERASE 40 U/L (12-78); ALBUMIN/GLOBULIN RATIO 0.8 (1.1-1.5); ALKALINE PHOSPHATASE 97 IU/L (46-116); ASPARTATE AMINO TRANSFERASE 22 U/L (10-37)
[2025-03-13] MEDS ORDERED: mag hydrox/Alum hydrox/simeth 30ml oral suspension PO PRN (21:55)
[2025-03-13] MEDS ORDERED: magnesium hydroxide 30ml (MOM) UD suspension PO PRN (21:55)
[2025-03-13] MEDS ORDERED: potassium Cl 40MEQ/1/2NS 520ml 520 ML IV PRN (21:55)
[2025-03-13] MEDS ORDERED: potassium Cl 20 mEq SR tablet PO PRN ×2 (21:55)
[2025-03-13] MEDS ORDERED: ondansetron/PF 4mg/2ml inj IV PRN (21:55)
[2025-03-13] MEDS ORDERED: bisacodyl 10mg suppository rectal RC PRN (21:55)
[2025-03-13] MEDS ORDERED: metoclopramide 5 mg/ml inj IV PRN (21:55)
[2025-03-13] MEDS ORDERED: HYDROmorphone inj. 0.5 MG/0.5 ML DISP.SYRIN IV PRN (21:55)
[2025-03-13] MEDS ORDERED: morphine 2 MG/ML inj. syringe IV PRN (21:55)
[2025-03-13] MEDS ORDERED: magnesium sulf-water 4G/100mL 100 ML IV PRN (21:55)
[2025-03-13] MEDS ORDERED: acetaminophen 325mg tablet PO PRN (21:55)
[2025-03-13] MEDS ORDERED: magnesium Cl slow-release 64mg tablet PO PRN (21:55)
[2025-03-13] MEDS ORDERED: magnesium sulf-water 2g/50mL 50 ML IV PRN (21:55)
[2025-03-13] MEDS: normal saline 1000ml 1,000 ML IV SCH (22:14)
[2025-03-13 22:37] LABS: PRO BRAIN NATRIURETIC PEPTIDE 69 PG/ML (0-125)
[2025-03-13] MEDS: VANCOMYCIN/H2O 1.5g/300mL PB 300 ML IV ONE (22:50)
[2025-03-13 23:34] VITALS: BP 121/81; PULSE 86; RESP 18; TEMP 97.8; O2SAT 100
[2025-03-14] MEDS: hydrOXYzine 25 MG tablet PO PRN ×2 (00:18→19:26)
[2025-03-14 01:37] LABS: BILIRUBIN,URINE NEGATIVE (Neg); CLARITY,URINE CLEAR (Clear); COLOR,URINE YELLOW (Yellow); GLUCOSE, URINE NEGATIVE (Neg); KETONES,URINE NEGATIVE (Neg); LEUKOCYTE ESTERASE ,URINE NEGATIVE (Neg); NITRITES, URINE NEGATIVE (Neg); OCCULT BLOOD,URINE NEGATIVE (Neg); PROTEIN,URINE NEGATIVE (Neg); UROBILINOGEN,URINE 0.2 E.U/dL (0.2-1.0)
[2025-03-14 01:40] LABS: UA COLLECTION TYPE NON-SPECIFIED
[2025-03-14 05:45] LABS: BASOPHILS % (AUTO) 0.6 % (0-1); EOSINOPHILS # (AUTO) 0.3 X10'3 (0-0.9); EOSINOPHILS % (AUTO) 5.2 % (0-6); HEMATOCRIT 35.7 % (35.0-45.0); HEMOGLOBIN 11.9 g/dl (12.0-16.0); LYMPHOCYTES # (AUTO) 1.6 X10'3 (1.1-4.8); LYMPHOCYTES % (AUTO) 30.4 % (21-51); MEAN CORPUSCULAR HEMOGLOBIN 29.8 PG (27.0-31.0); MEAN CORPUSCULAR HGB CONC 33.4 g/dL (33.0-36.5); MEAN CORPUSCULAR VOLUME 89.1 FL (78-98); MEAN PLATELET VOLUME 8.2 FL (7.4-10.4); MONOCYTES # (AUTO) 0.5 X10'3 (0-0.9); MONOCYTES % (AUTO) 9.5 % (2-12); NEUTROPHILS # (AUTO) 2.9 X10'3 (1.8-7.7); NEUTROPHILS % (AUTO) 54.3 % (42-75); PLATELET COUNT 309 X10'3 (140-440); RED BLOOD COUNT 4.01 X10'6 (4.20-5.60); RED CELL DISTRIBUTION WIDTH 12.8 % (11.5-14.5); WHITE BLOOD COUNT 5.3 X10'3 (4.5-11.0)
[2025-03-14 06:00] VITALS: BP 117/76; PULSE 84; RESP 16; TEMP 97.5; O2SAT 97
[2025-03-14 06:06] LABS: ALANINE AMINOTRANSFERASE 35 U/L (12-78); ALBUMIN 2.8 G/DL (3.4-5.0); ALBUMIN/GLOBULIN RATIO 0.8 (1.1-1.5); ALKALINE PHOSPHATASE 85 IU/L (46-116); ANION GAP 8 (8-16); ASPARTATE AMINO TRANSFERASE 24 U/L (10-37); BILIRUBIN,TOTAL 0.3 MG/DL (0.1-1.0); BLOOD UREA NITROGEN 16 MG/DL (7-18); BUN/CREATININE RATIO 25.4 (10.0-20.0); CALCIUM 8.2 MG/DL (8.5-10.1); CHLORIDE 107 MMOL/L (99-107); CHOL/HDL RATIO 3.9 (0.00-4.99); CHOLESTEROL 160 MG/DL (0-200); CREATININE 0.63 MG/DL (0.40-0.90); GLUCOSE 95 MG/DL (70-104); HDL CHOLESTEROL 41 MG/DL (35-60); LDL CHOLESTEROL 97 MG/DL (50-100); MAGNESIUM 2.1 MG/DL (1.5-2.4); POTASSIUM 3.9 MMOL/L (3.5-5.1); SODIUM 142 MMOL/L (135-145); TOTAL CARBON DIOXIDE 27.2 MMOL/L (24-32); TOTAL PROTEIN 6.5 G/DL (6.4-8.2); TRIGLYCERIDES 110 MG/DL (20-135); eCRCL 107 ML/MIN; eGFR > 90 ML/MIN
[2025-03-14 07:00] VITALS: RESP 16; O2SAT 97
[2025-03-14] MEDS ORDERED: docusate sod 100mg capsule PO SCH (08:00)
[2025-03-14] MEDS: K and/or MAG REPLACEMENT MC SCH (08:00)
[2025-03-14] MEDS ORDERED: vancomycin/NS 1 GM ADD-VANTAGE 250 ML IV SCH (08:00)
[2025-03-14] MEDS: heparin, porcine 5000 units/ml vial SQ SCH (09:24)
[2025-03-14] MEDS: vancomycin/NS 1 GM ADD-VANTAGE 250 ML IV SCH (09:24)
[2025-03-14] MEDS: HYDROcodone/acetaminophen 5mg/325mg tablet PO PRN (09:46)
[2025-03-14 10:00] VITALS: BP 107/64; PULSE 93; RESP 20; TEMP 98.7; O2SAT 96
[2025-03-14 13:35] LABS: URINE AMPHETAMINE SCREEN POSITIVE (Neg); URINE BARBITUATE SCREEN NEGATIVE (Neg); URINE BENZODIAZEPINES SCREEN NEGATIVE (Neg); URINE CANNABINOID SCREEN NEGATIVE (Neg); URINE COCAINE SCREEN NEGATIVE (Neg); URINE METHADONE SCREEN NEGATIVE (Neg); URINE OPIATE SCREEN POSITIVE (Neg); URINE PHENCYCLIDINE SCREEN NEGATIVE (Neg)
[2025-03-14 18:00] VITALS: BP 131/62; PULSE 82; RESP 20; TEMP 98.6; O2SAT 99
[2025-03-14 20:00] VITALS: RESP 20; O2SAT 99
[2025-03-14 22:00] VITALS: BP 104/56; PULSE 79; RESP 16; TEMP 98; O2SAT 98
[2025-03-15 05:50] LABS: BASOPHILS % (AUTO) 0.8 % (0-1); EOSINOPHILS # (AUTO) 0.3 X10'3 (0-0.9); EOSINOPHILS % (AUTO) 4.9 % (0-6); HEMATOCRIT 35.6 % (35.0-45.0); LYMPHOCYTES % (AUTO) 37.1 % (21-51); MEAN CORPUSCULAR HEMOGLOBIN 30.1 PG (27.0-31.0); MEAN CORPUSCULAR HGB CONC 33.7 g/dL (33.0-36.5); MEAN CORPUSCULAR VOLUME 89.3 FL (78-98); MONOCYTES # (AUTO) 0.4 X10'3 (0-0.9); MONOCYTES % (AUTO) 6.6 % (2-12); NEUTROPHILS # (AUTO) 2.7 X10'3 (1.8-7.7); NEUTROPHILS % (AUTO) 50.6 % (42-75); PLATELET COUNT 344 X10'3 (140-440); RED BLOOD COUNT 3.98 X10'6 (4.20-5.60); RED CELL DISTRIBUTION WIDTH 12.9 % (11.5-14.5); WHITE BLOOD COUNT 5.3 X10'3 (4.5-11.0)
[2025-03-15 06:49] LABS: ALANINE AMINOTRANSFERASE 34 U/L (12-78); ALBUMIN 2.8 G/DL (3.4-5.0); ALBUMIN/GLOBULIN RATIO 0.8 (1.1-1.5); ALKALINE PHOSPHATASE 81 IU/L (46-116); ANION GAP 8 (8-16); ASPARTATE AMINO TRANSFERASE 20 U/L (10-37); BILIRUBIN,TOTAL 0.3 MG/DL (0.1-1.0); BLOOD UREA NITROGEN 18 MG/DL (7-18); BUN/CREATININE RATIO 28.6 (10.0-20.0); CALCIUM 8.5 MG/DL (8.5-10.1); CHLORIDE 106 MMOL/L (99-107); CREATININE 0.63 MG/DL (0.40-0.90); GLUCOSE 98 MG/DL (70-104); MAGNESIUM 2.3 MG/DL (1.5-2.4); POTASSIUM 4.2 MMOL/L (3.5-5.1); SODIUM 141 MMOL/L (135-145); TOTAL CARBON DIOXIDE 26.7 MMOL/L (24-32); TOTAL PROTEIN 6.5 G/DL (6.4-8.2); eCRCL 107 ML/MIN; eGFR > 90 ML/MIN
[2025-03-15 07:17] VITALS: BP 115/72; PULSE 80; RESP 14; TEMP 97.7; O2SAT 97
[2025-03-15] MEDS: VANCOMYCIN LEVEL IV ONE (09:10)
[2025-03-15 09:16] VITALS: RESP 16
[2025-03-15 15:19] VITALS: RESP 16
[2025-03-15] MEDS ORDERED: LINE600T14 PO (16:22)
[2025-03-15] MEDS ORDERED: LACT1CAP74 PO (17:25)
[2025-03-15] MEDS ORDERED: LORA-269 PO (17:25)
== END 2025-03-15 17:55 | disposition home or self-care (01) | DRG 383 ==
LOC: ER 19:41 → ED HOLD 21:59 → ORTHO 4S 23:23 → SUR 3N 03-14 07:00
PROVIDERS: ADMIT Internal Medicine Critical Care Medicine; ATTEND Internal Medicine
DX: L03.115 Cellulitis of right lower limb (principal); F15.10 Other stimulant abuse, uncomplicated; F17.290 Nicotine dependence, other tobacco product, uncomplicated; F41.9 Anxiety disorder, unspecified; F32.A Depression, unspecified; Z91.148 Patient's other noncompliance with medication regimen for other reason; Z90.49 Acquired absence of other specified parts of digestive tract
CPT/HCPCS: 36415; 71045; 73700; 80053; 80061; 80202; 80305; 81003; 83605; 83735; 83880; 85025; 87040; 87081; 99285; G0378; J1644; J3370; J3372; J7030; Q0177

== ENCOUNTER 2025-05-19 09:46 | Outpatient (CLI) | payer MEDICAID ==
[~2025-05-19 09:46] MED LIST changes: -ACET-1008 PO; -LACT1CAP26 PO; +LACT1CAP74 PO; -LINE600T11 PO; +LINE600T14 PO; +LORA-269 PO; -NO HOME MEDS; -NYSPWD TP
--- NOTE | 2025-05-19 10:17 | RADIOLOGY REPORT ---
CLINICAL INDICATION: PAIN IN RIGHT ANKLE AND JOINTS OF RIGHT FOOT COMPARISON: CT CT LOWER EXTREMITY on DOS: 03/14/25 TECHNIQUE: Multiplanar, multisequence MRI of the right ankle was performed without intravenous contr ast. Contrast: None INTERPRETATION: Bones: No evidence of acute fracture. No evidence of marrow replacing lesion. Alignment: Unremarkable. Ligaments: The anterior talofibular ligament is torn. The posterior talofibular ligament is intact. T he calcaneofibular ligament is intact. The inferior tibiofibular ligaments are intact. The visualized portions of the deltoid and spring ligaments are intact. Tendons: There is fusiform thickening of the Achilles tendon with T2 hyperintensity. The peroneal te ndons are intact. The posterior tibialis, flexor hallucis longus and flexor digitorum longus tendons are intact. The dorsal extensor tendons are intact. Plantar Fascia: The medial cord of the plantar fascia is intact. Bursae: The retroachilles bursa is not fluid distended. The retrocalcaneal bursa is not fluid diste nded. Mass/Fluid: No significant joint effusion. No mass or fluid in the sinus tarsi. Muscles: Intrinsic muscles of the foot are unremarkable. Soft tissues: Subcutaneous edema in the medial and lateral ankle. IMPRESSION: 1. Achilles tendinosis without tear in the right ankle. 2. Tear of the anterior talofibular ligament. 3. Mild nonspecific edema in the ankle.
== END 2025-05-19 23:59 | disposition home or self-care (01) ==
LOC: MRI02 09:46
PROVIDERS: ATTEND Nurse Practitioner Family
DX: M76.61 Achilles tendinitis, right leg (principal); M25.571 Pain in right ankle and joints of right foot; R60.0 Localized edema; F15.10 Other stimulant abuse, uncomplicated; F17.210 Nicotine dependence, cigarettes, uncomplicated; Z90.49 Acquired absence of other specified parts of digestive tract; Z98.890 Other specified postprocedural states; Z98.51 Tubal ligation status; Z71.3 Dietary counseling and surveillance; Z79.899 Other long term (current) drug therapy
CPT/HCPCS: 73721

== ENCOUNTER 2025-08-26 11:08 | Emergency (ER) | payer MEDICAID ==
[~2025-08-26] VITALS: Ht 172.7 cm; Wt 90.9 kg
--- NOTE | 2025-08-26 11:20 | Physician Documentation ---
History of Present Illness ~ Stated Complaint: CHEST PAIN Time Seen by MD: 11:25 Primary Medical Doctor: [facility] HPI 50 yr old female with hx of methamphetamine use presents due to chest pain and severe headache. She also reports subjective fever, chills, and malaise. Medication Reconciliation Allergies: Coded Allergies: No Known Allergies (Unverified , 08/26/25) Scheduled Lactobacillus Rhamnosus GG (Culturelle), 1 CAP PO DAILY Linezolid (Linezolid), 1 TAB PO Q12H Lorazepam (Ativan), 1 TAB PO Q8H Past Medical History Past Medical History: Cholelithiasis, Pancreatitis, Anxiety, Depression Past Surgical History: cholecystectomy, Patient History: Patient reports no known family medical history. Alcohol Use: None Drug Use: methamphetamine Lives with: Father Lives In: Home Occupation: unemployed Review of Systems ROS As stated above in the HPI, otherwise all systems are reviewed and negative. Physical Exam Physical Exam General: Alert, appears acutely distressed and unwell. HEENT: PERRL, EOMI, no injection, moist mucous membranes. Neck: Full range of motion. Respiratory: Lungs clear, no respiratory distress. Chest: No accessory muscle use. Cardiovascular: Regular rate and rhythm, no murmurs. Gastrointestinal: Soft, nontender, nondistended. Bowels sounds present. Extremities: Normal range of motion, no deformity. Neurologic: Oriented x4. Psychiatric: Normal mood and affect. Skin: Normal color, warm and dry. No edema, no ecchymosis. Progress Progress Note 1245: Re-evaluation, patient denies any chest pain and reports that her headache has almost completely subsided. She is appropriate for discharge. She has had a negative troponin, normal chest x-ray. Results/Orders Results/Orders Orders - LAURENCE JIMENEZ NP Chest,Single View (08/26/25 11:16) Monitor (08/26/25 11:16) Saline Lock (08/26/25 11:16) Hs Troponin I W Calculations (08/26/25 13:16) Hs Troponin I W Calculations (08/26/25 14:16) Completed Orders - LAURENCE JIMENEZ VERIFIER OPERATOR Cbc/Diff (08/26/25 11:16) Lipase (08/26/25 11:16) PBNP (08/26/25 11:16) Chest,Single View (08/26/25 11:16) Electrocardiogram (08/26/25 11:16) BMP (08/26/25 11:16) Hs Troponin I W Calculations (08/26/25 11:16) Normal Saline 1000ml (0.9% Sodium Chlori (08/26/25 11:25) Prochlorperazine Inj (Compazine Inj) (08/26/25 11:25) Diphenhydramine Inj (Benadryl Inj.) (08/26/25 11:25) Ketorolac Trometh 15mg/Ml Vial (Toradol (08/26/25 11:25) Man Diff (08/26/25 11:22) Medications Received in ER Medications (Trade) Dose Ordered Sig/Claudy Route PRN Reason Start Time Stop Time Status Last Admin Dose Admin Sodium Chloride 1,000 ml @ 1,000 mls/hr ONCE ONCE IV 08/26/25 11:25 08/26/25 12:24 DC 08/26/25 11:48 1,000 MLS/HR (Compazine inj) 10 mg ONCE ONCE IV 08/26/25 11:25 08/26/25 11:26 DC 08/26/25 11:48 10 MG (Benadryl inj.) 25 mg ONCE ONCE IV 08/26/25 11:25 08/26/25 11:26 DC 08/26/25 11:47 25 MG (Toradol injection) 15 mg ONCE ONCE IV 08/26/25 11:25 08/26/25 11:26 DC 08/26/25 11:47 15 MG Vital Signs 08/26/25 08/26/25 08/26/25 08/26/25 11:21 11:47 11:54 11:58 Temp 98.3 Pulse 113 95 Resp 18 18 20 21 B/P (MAP) 151/80 121/69 (86) Pulse Ox 96 97 Laboratory Tests Test 08/26/25 11:22 White Blood Count 4.5 Red Blood Count 4.24 Hemoglobin 12.7 Hematocrit 37.3 Mean Corpuscular Volume 88.0 Mean Corpuscular Hemoglobin 30.0 Mean Corpuscular Hemoglobin Concent 34.1 Red Cell Distribution Width 12.4 Platelet Count 214 Mean Platelet Volume 8.2 Neutrophils (%) (Auto) 64.2 Lymphocytes (%) (Auto) 18.6 L Monocytes (%) (Auto) 15.2 H Eosinophils (%) (Auto) 1.6 Basophils (%) (Auto) 0.4 Neutrophils # (Auto) 2.9 Lymphocytes # (Auto) 0.8 L Monocytes # (Auto) 0.7 Eosinophils # (Auto) 0.1 Basophils # (Auto) 0.0 CBC Comment Differential Total Cells Counted 100 Neutrophils % (Manual) 62.0 Lymphocytes % (Manual) 18.0 L Monocytes % (Manual) 19.0 H Eosinophils % (Manual) 1.0 Platelet Estimate Normal Red Blood Cell Morphology Normal Basophilic Stippling Sodium Level 136 Potassium Level 3.9 Chloride Level 102 Carbon Dioxide Level 25.1 Anion Gap 9 Blood Urea Nitrogen 8 Creatinine 0.73 Estimated GFR/1.73 m2 84 BUN/Creatinine Ratio 11.0 Glucose Level 105 H Calcium Level 8.5 Troponin I High Sensitivity 7 Pro-B-Type Natriuretic Peptide 175 H Albumin 3.5 Lipase 26 Chemistry Comments EKG/XRAY/CT/US/VASC/MRI EKG : Additional Comment 1117: EKG interpreted to show ST rate of 103. No ectopy. No ST segment elevation. QTC 444 ms. Abdominal X-Ray : Additional Comment [facility] [address] [address] DIAGNOSTIC RADIOLOGY Patient: MICHELLE CHRIS Medical Record: [id number] [facility] : 1975, Age: 50 Sex: Female Location: ER Patient Status: REG ER Service Date/Time: 08/26/251115 Ordering Physician: LAURENCE JIMENEZ VERIFIER OPERATOR Exam: CHEST,SINGLE VIEW CHEST RADIOGRAPH Indication: CHEST PAIN Technique: Single frontal view of the chest was obtained COMPARISON: DI CHEST,SINGLE VIEW on DOS: 03/13/25, DI CHEST,SINGLE VIEW on DOS: 03/10/25, CHEST,SINGLE VIEW on DOS: 11/20/19 FINDINGS: Lines and Tubes: None Lungs: Clear Pleura: No effusion. No pneumothorax. Cardiomediastinal contours: Unremarkable Bones: Unremarkable IMPRESSION: No acute disease. Electronically Signed by:PEPE HANSEN MD Date & Time: 08/26/251203 Dictated by: PEPE HANSEN MD Dictation date and time: 08/26/25 1204 Primary Care Provider: NO PRIMARY CARE PROVIDER cc: LAURENCE JIMENEZ NP ~ Medical Decision Making Differential Dx:Considerations: Include: angina, aortic dissection, chest wall pain, cholelithiasis, CHF, costochondritis, esophageal reflux/spasm, gastritis, herpes zoster, myocardial infarction, pericarditis, pleuritis, pancreatitis, pneumonia, pneumothorax, pulmonary embolus Additional Information Normal troponin. Normal chest x-ray. Headache resolved with intravenous medications and fluids. Patient then appropriate for discharge. We will be sent with naproxen and ondansetron for p.r.n. use. Is to follow up with the primary care provider. Departure Time of Disposition: 13:02 Disposition: 01 HOME / SELF CARE / HOMELESS Impression: Primary Impression: Headache Additional Impression: Chest pain Condition: Stable Discharge Instructions: Migraine Headache, Nonspecific Chest Pain, Adult Additional Instructions: You were treated for your headache. You were evaluated for your chest pain and found to have no signs of heart attack with negative troponin and normal EKG. Please follow up with the primary care provider. Please return if worse. Referrals: NO PRIMARY CARE PROVIDER (PCP) Education Educated: Patient, Family Educated regarding: diagnosis, treatment, prognosis, need for follow up Signature Scribe Signature: x Attestation: The note accurately reflects work and decisions made by me.Laurence Chappell NP 08/26/25 11:23 LAURENCE JIMENEZ NP Aug 26, 2025 11:20
[2025-08-26 11:21] VITALS: TEMP 98.3
[2025-08-26 11:36] LABS: MEAN PLATELET VOLUME 8.2 FL (7.4-10.4); RED CELL DISTRIBUTION WIDTH 12.4 % (11.5-14.5)
[2025-08-26] MEDS: ketorolac trometh 15mg/ml vial 15 MG/ML ML IV ONE (11:47)
[2025-08-26] MEDS: normal saline 1000ml 1,000 ML IV ONE (11:48)
[2025-08-26 11:56] LABS: CREATININE 0.73 MG/DL (0.40-0.90); TOTAL CARBON DIOXIDE 25.1 MMOL/L (24-32); eCRCL 91 ML/MIN; eGFR 84 ML/MIN
[2025-08-26 12:03] LABS: PRO BRAIN NATRIURETIC PEPTIDE 175 PG/ML (0-125)
--- NOTE | 2025-08-26 12:03 | ELECTROCARDIOGRAPH REPORT ---
[facility] Test Date: 2025-08-26 Test Time: 11:17:23 Pat Name: MICHELLE CHRIS Department: EMERGENCY ROOM [id number] Room: Gender: F Bilingual Research Interviewer: CHANTAL : 1975 Requested By: LIBIA JIMENEZ Order Number: [id number] Reading MD: Measurements Intervals [place] Rate: 103 P: 53 [place]: 158 QRS: 38 QRSD: 105 T: 33 QT: 339 QTc: 444 Interpretive Statements Sinus tachycardia RSR' in V1 or V2, right VCD or RVH Borderline T abnormalities, anterior leads Please click the below link to view image of tracing.
--- NOTE | 2025-08-26 12:06 | RADIOLOGY REPORT ---
CHEST RADIOGRAPH Indication: CHEST PAIN Technique: Single frontal view of the chest was obtained COMPARISON: DI CHEST,SINGLE VIEW on DOS: 03/13/25, DI CHEST,SINGLE VIEW on DOS: 03/10/25, CHEST,SINGLE VIEW on DOS: 11/20/19 FINDINGS: Lines and Tubes: None Lungs: Clear Pleura: No effusion. No pneumothorax. Cardiomediastinal contours: Unremarkable Bones: Unremarkable IMPRESSION: No acute disease.
[2025-08-26 12:32] LABS: EOSINOPHILS % (MANUAL) 1.0 % (0-6); LYMPHOCYTES % (MANUAL) 18.0 % (21-51); MONOCYTES % (MANUAL) 19.0 % (2-12); NEUTROPHILS % (MANUAL) 62.0 % (42-75); PLATELET ESTIMATE NORMAL
[2025-08-26 13:40] VITALS: BP 106/64; PULSE 100; RESP 20; O2SAT 96
== END 2025-08-26 14:47 | disposition home or self-care (01) ==
LOC: ER 11:09
DX: R07.9 Chest pain, unspecified (principal); R51.9 Headache, unspecified; F15.90 Other stimulant use, unspecified, uncomplicated; F41.9 Anxiety disorder, unspecified; F32.A Depression, unspecified; Z90.49 Acquired absence of other specified parts of digestive tract; Z56.0 Unemployment, unspecified; Z87.19 Personal history of other diseases of the digestive system; Z79.899 Other long term (current) drug therapy; Z98.890 Other specified postprocedural states
CPT/HCPCS: 36415; 71045; 80048; 83690; 83880; 84484; 85007; 85025; 93005; 96361; 96374; 96375; 99285; J0780; J1200; J1885; J7030